=== PATIENT | female | born 1990 | race Caucasian/White ===

== ENCOUNTER 2016-04-14 17:02 | Emergency (ER) | payer MEDICAID ==
[~2016-04-14] VITALS: Wt 96.0 kg
[2016-04-14 17:07] VITALS: Wt 96.0 kg
[2016-04-14] MEDS ORDERED: IBUPROFEN 800 MG TAB PO ONE (19:30)
--- NOTE | 2016-04-14 19:38 | RADRPT ---
PROCEDURE: XR Chest. CLINICAL INDICATION: Chest pain. TECHNIQUE: Portable AP semi-erect view of the chest was obtained. COMPARISON: None. FINDINGS: The cardiomediastinal silhouette is within normal limits. The lungs are clear. There is no evidenc e for pleural effusion, pneumothorax or pulmonary vascular congestion. The osseous structures are i ntact with no evidence for acute abnormality. RPTAT:HJJR IMPRESSION: No evidence for acute intrathoracic pathology. Physician Karo Date Time Electronically viewed and signed by Jimbo Small Physician on 04/14/2016 19:38 JR/
[2016-04-14] MEDS ORDERED: IBUP-1542 PO (20:25)
--- NOTE | 2016-04-14 20:26 | ERD ---
ER Documentation Chief Complaint Date/Time DATE: 04/14/16 TIME: 20:25 Chief Complaint mid chest pressure, l. breast swelling HPI Patient is a 25-year-old female with no medical problems who presents with chest pain and back pain. Her symptoms started yesterday. She has pain with breathing. She has had no treatment as of yet. The pain comes and goes and is sharp in nature. She does not currently have a primary doctor. ROS All systems reviewed and are negative except as per history of present illness. Medications Home Meds Active Scripts Ibuprofen* (Motrin*) 600 Mg Tab, 600 MG PO Q6H Y for PAIN AND OR ELEVATED TEMP, #30 TAB Prov:BROOK FUNG MD 04/14/16 Allergies Allergies: Coded Allergies: No Known Drug Allergies (Verified Allergy, Unknown, 04/14/16) PMhx/Soc Medical and Surgical Hx: pt denies Medical Hx, pt denies Surgical Hx Hx Alcohol Use: No Hx Substance Use: No Hx Tobacco Use: No Smoking Status: Never smoker FmHx Family History: No coronary disease Physical Exam Vitals Vital Signs Date Time Temp Pulse Resp B/P Pulse Ox O2 Delivery O2 Flow Rate FiO2 04/14/16 20:37 99.1 78 18 139/81 98 Room Air 04/14/16 17:07 98.2 87 20 123/66 98 Physical Exam Const: No acute distress Head: Atraumatic Eyes: Normal Conjunctiva ENT: Normal External Ears, Nose and Mouth. Neck: Full range of motion..~ No meningismus. Resp: Clear to auscultation bilaterally Cardio: Regular rate and rhythm, no murmurs Abd: Soft, non tender, non distended. Normal bowel sounds Skin: No petechiae or rashes Back: No midline or flank tenderness Ext: No cyanosis, or edema Neur: Awake and alert Psych: Normal Mood and Affect Results 24 hrs Current Medications Medications (Trade) Dose Ordered Sig/Sneha Route PRN Reason Start Time Stop Time Status Last Admin Dose Admin Ibuprofen (Motrin) 800 mg ONCE ONCE PO 04/14/16 19:30 04/14/16 19:31 DC 04/14/16 19:39 Procedures/MDM EKG read by me: Rate/Rhythm: Regular rate and rhythm at a rate of 92 Intervals: Normal Impression: No evidence of ischemia or arrhythmia Chest x-ray negative per radiology. Urine test is negative. Patient is a 25-year-old female with no medical problems who presents with chest pain. Her EKG and chest x-ray are negative. She is not . Her PERC score is 0 and I doubt pulmonary embolism. At this point I doubt acute coronary syndrome, pneumonia, pneumothorax, pulmonary embolism, or aortic dissection. I believe outpatient management is appropriate. The patient was given ibuprofen and will be given a prescription for ibuprofen. She will need to follow-up closely with the primary doctor at the local clinics within 24-48 hours. She can return sooner for any worsening symptoms. Departure Diagnosis: Primary Impression: Chest pain Chest pain type: unspecified Qualified Code: R07.9 - Chest pain, unspecified type Condition: Fair Patient Instructions: Chest Pain, Uncertain Cause [facility] Usted se sotelo hecho un examen mdico de control que le indica que no est en ramon condicin que requiera tratamiento urgente en el Departamento de Emergencia. Un estudio ms profundo y el tratamiento de dempsey condicin pueden esperar sin ningn riesgo hasta que usted sea atendida/o en el consultorio de dempsey mdico o ramon cl dmitriy. Es responsabilidad suya arreglar ramon kacy para el seguimiento del ivana. MANEJO DE CONDICIONES NO URGENTES EN EL FUTURO 1) Si usted tiene un mdico de atencin primaria: Usted debera llamar a dempsey mdico de atencin primaria antes de venir al departamento de emergencia. Despus de las horas de consultorio, dempsey doctor o dempsey asociado/a est disponible por telfono. El mdico o enfermero de shameka en el servicio telefnico puede asesorarle por timoteo medio para atender el problema, o ivana contrario se puede programar ramon kacy. 2) Si usted no tiene un mdico de atencin primaria: Llame al mdico o clnica de referencia que aparece abajo cindy las horas de consultorio para hacer ramon kacy para que le vean. CLINICAS: [place] [id number] [phone] [facility] [phone] [facility] [phone] [place] [phone] [place] [phone] [place] [id number] [phone] Additional Instructions: Llame al doctor MAANA y darrell ramon KACY PARA DENTRO DE 1-2 MCKOY.Dgale a la secretaria que nosotros le instruimos hacer esta kacy.Avise o llame si dempsey condicin se empeora antes de la kacy. Regresa aqui si peor o no mejor. BROOK FUNG MD Apr 14, 2016 20:26
[2016-04-14 20:37] VITALS: BP 139/81; PULSE 78; RESP 18; TEMP 99.1
== END 2016-04-14 20:38 | disposition home or self-care (01) ==
LOC: FTE 17:02
DX: R07.9 Chest pain, unspecified (principal)
CPT/HCPCS: 71010; 93005; Z7502; Z7610